=== PATIENT | female | born 1985 | race Two or more races ===

== ENCOUNTER 2020-06-02 19:42 | Emergency (ER) | payer OTHER ==
[~2020-06-02] VITALS: Ht 149.9 cm; Wt 49.9 kg
[2020-06-02] MEDS ORDERED: ACETAMINOPHEN 325 MG TABLET PO ONE (20:00)
--- NOTE | 2020-06-02 20:00 | NUR ---
BIBS FROM HOME TO ER BED 7. AAOX4. NOT IN RESP DISTRESS. AMBULATORY. CAME IN FOR ABDOMINAL CRAMPING AND NAUSEA. PT REPORTS THAT SHE IS 1 MONTH. MD WAS AT THE BEDSIDE FOR EVAL. ORDERS RECEIVED, NOTED AND CARRIED OUT.
[2020-06-02] MEDS ORDERED: ACETAMINOPHEN 325 MG TABLET ONE (20:08)
[2020-06-02 20:30] LABS: BASOPHILS # (AUTO) 0.1 /CMM (0.0-0.2); BASOPHILS % (AUTO) 0.7 % (0.0-2.0); EOSINOPHILS % (AUTO) 0.8 % (0.0-6.0); HEMATOCRIT 29 % (33-45); HEMOGLOBIN 9.3 g/dL (11.5-14.8); LYMPHOCYTES # (AUTO) 1.1 /CMM (0.8-4.8); LYMPHOCYTES % (AUTO) 14.5 % (20.0-44.0); MEAN CORPUSCULAR HGB CONC 32 g/dl (31.0-36.0); MEAN CORPUSCULAR VOLUME 77 fL (82-100); MONOCYTES # (AUTO) 0.5 /CMM (0.1-1.30); MONOCYTES % (AUTO) 7.1 % (2.0-12.0); NEUTROPHILS # (AUTO) 5.8 /CMM (1.8-8.9); NEUTROPHILS % (AUTO) 76.9 % (43.0-81.0); PLATELET COUNT (AUTO) 290 /CMM (150-450); RED BLOOD CELL COUNT(AUTO) 3.79 MIL/uL (4.0-5.2); WHITE BLOOD COUNT (AUTO) 7.6 K/uL (4.3-11.0)
--- NOTE | 2020-06-02 20:55 | NUR ---
urine sent to lab
[2020-06-02 21:01] LABS: BILIRUBIN,URINE Negative (NEGATIVE); BLOOD, URINE Negative Ery/uL (NEGATIVE); COLOR,URINE YELLOW (YELLOW); LEUKOCYTE ESTERASE ,URINE Small (NEGATIVE); NITRITE, URINE Negative (NEGATIVE); PH,URINE 6.5 (5.0-8.0); PROTEIN,URINE 30 mg/dl (NEGATIVE); UGLUCOSE Negative (NEGATIVE); UROBILINOGEN,URINE 0.2 EU/dL (0.2)
[2020-06-02 21:52] LABS: BACTERIA,URINE 1+ /HPF (None Seen); RBC,URINE NONE SEEN /HPF (0-2); SQUAMOUS EPITHELIAL CELL,UR Few /HPF (None Seen)
--- NOTE | 2020-06-02 22:52 | NUR ---
Patient discharged to home in stable condition. Written and verbal after care instructions given. Patient verbalizes understanding of instruction. Pt ambulatory with a steady gait
[2020-06-02 22:53] VITALS: BP 99/58
== END 2020-06-02 22:54 | disposition home or self-care (01) ==
LOC: ER 19:44
DX: N93.9 Abnormal uterine and vaginal bleeding, unspecified (principal); D64.9 Anemia, unspecified; Z90.49 Acquired absence of other specified parts of digestive tract
CPT/HCPCS: 36415; 76856-TC; 81001; 84702-TC; 84703-TC; 85025-TC; 87086-TC

== ENCOUNTER → 2020-11-08 | Emergency (ER) | payer OTHER ==
[~2020-11-08] VITALS: Ht 149.9 cm; Wt 49.9 kg
[~2020-11-08] MED LIST: CEPH500C2 PO; HYDROCODONE/APAP 5/325MG TABLET ONE; HYDROCODONE/APAP 5/325MG TABLET PO ONE; IBUPROFEN 600 MG TABLET PO ONE; OXYC-128 PO
--- NOTE | 2020-11-08 09:57 | NUR ---
pt recv;d to er c/o kidney stones pain for 2 days . AWAITING EVALUATION BY ER PROVIDER. pain in back 04/04
--- NOTE | 2020-11-08 10:34 | NUR ---
PT GIVEN NORCO 5/325 MG PO
[2020-11-08 10:39] LABS: BILIRUBIN,URINE NEGATIVE (NEGATIVE); COLOR,URINE YELLOW (YELLOW); LEUKOCYTE ESTERASE ,URINE TRACE (NEGATIVE); NITRITE, URINE NEGATIVE (NEGATIVE); PH,URINE 6.5 (5.0-8.0); PROTEIN,URINE NEGATIVE (NEGATIVE); UGLUCOSE NEGATIVE (NEGATIVE)
[2020-11-08 10:48] LABS: BACTERIA,URINE Few /HPF (None Seen); SQUAMOUS EPITHELIAL CELL,UR Moderate /HPF (None Seen)
--- NOTE | 2020-11-08 11:45 | NUR ---
PT. VERBALIZED UNDERSTANDING OF AFTERCARE INSTRUCTIONS.Patient discharged to home in stable condition. Written and verbal after care instructions given. Patient verbalizes understanding of instruction.
[2020-11-08 11:46] VITALS: BP 121/73
== END | disposition home or self-care (01) ==
LOC: ER 09:09
DX: N20.0 Calculus of kidney (principal); Z90.49 Acquired absence of other specified parts of digestive tract
CPT/HCPCS: 81001; 84703-TC; 87086-TC

== ENCOUNTER 2020-11-18 18:53 | Emergency (ER) | payer OTHER ==
[~2020-11-18] VITALS: Ht 149.9 cm; Wt 47.6 kg
[~2020-11-18 18:53] MED LIST changes: -HYDROCODONE/APAP 5/325MG TABLET ONE; -HYDROCODONE/APAP 5/325MG TABLET PO ONE; -IBUPROFEN 600 MG TABLET PO ONE
--- NOTE | 2020-11-18 19:05 | NUR ---
Pt bibra c/o rt flank pain and LLQ abd pain. Pt aaox4 breathing evenly and unlabored. Pt attached to monitor and pox. Skin is warm, dry, and intact. PA at bedside for eval. Rt ac 20g initated. Blood obtained and sent to lab. Pt given blanket and call light within reach
[2020-11-18] MEDS ORDERED: ONDANSETRON HCL/PF 4 MG/2 ML VIAL ONE (19:28)
[2020-11-18] MEDS ORDERED: MORPHINE SULFATE INJ 4 MG/ML DISP.SYRIN ONE (19:28)
[2020-11-18] MEDS ORDERED: ONDANSETRON HCL/PF - ER 4 MG/2 ML VIAL IV ONE (19:30)
[2020-11-18] MEDS ORDERED: MORPHINE SULFATE INJ 2 MG/ML DISP.SYRIN IV ONE (19:30)
[2020-11-18] MEDS ORDERED: IV NS 0.9% 1,000 ML BAG IV ONE (19:30)
--- NOTE | 2020-11-18 19:30 | NUR ---
us at bedside
[2020-11-18 19:42] LABS: BASOPHILS # (AUTO) 0.1 /CMM (0.0-0.2); BASOPHILS % (AUTO) 1.2 % (0.0-2.0); EOSINOPHILS % (AUTO) 7.5 % (0.0-6.0); HEMATOCRIT 36 % (33-45); LYMPHOCYTES # (AUTO) 1.8 /CMM (0.8-4.8); LYMPHOCYTES % (AUTO) 27.9 % (20.0-44.0); MEAN CORPUSCULAR HGB CONC 33 g/dl (31.0-36.0); MEAN CORPUSCULAR VOLUME 92 fL (82-100); MONOCYTES # (AUTO) 0.4 /CMM (0.1-1.30); MONOCYTES % (AUTO) 6.8 % (2.0-12.0); NEUTROPHILS # (AUTO) 3.6 /CMM (1.8-8.9); NEUTROPHILS % (AUTO) 56.6 % (43.0-81.0); PLATELET COUNT (AUTO) 300 /CMM (150-450); RED BLOOD CELL COUNT(AUTO) 3.93 MIL/uL (4.0-5.2); WHITE BLOOD COUNT (AUTO) 6.4 K/uL (4.3-11.0)
[2020-11-18 19:50] LABS: CALCIUM, SERUM 8.9 mg/dL (8.5-10.1); CREATININE 0.8 mg/dL (0.6-1.3); POTASSIUM 4.2 mmol/L (3.5-5.1)
[2020-11-18 19:57] LABS: ALBUMIN 3.9 g/dL (3.4-5.0); BILIRUBIN,TOTAL 0.2 mg/dL (0.2-1.0)
[2020-11-18 20:25] LABS: BILIRUBIN,URINE NEGATIVE (NEGATIVE); COLOR,URINE YELLOW (YELLOW); LEUKOCYTE ESTERASE ,URINE NEGATIVE (NEGATIVE); NITRITE, URINE NEGATIVE (NEGATIVE); PROTEIN,URINE NEGATIVE (NEGATIVE); UGLUCOSE NEGATIVE (NEGATIVE); UROBILINOGEN,URINE 0.2 EU/dL (0.2)
[2020-11-18] MEDS ORDERED: DICY10CA37 PO (20:35)
[2020-11-18] MEDS ORDERED: ONDA4TAB11 PO (20:35)
[2020-11-18] MEDS ORDERED: LORAZEPAM INJ 2 MG/ML VIAL ONE (20:47)
--- NOTE | 2020-11-18 20:54 | NUR ---
Patient discharged to home in stable condition. Written and verbal after care instructions given. Patient verbalizes understanding of instruction. IV removed. Catheter intact and site benign. Pressure and 4x4 applied to site. No bleeding noted. Pt ambulatory with a steady gait
[2020-11-18 20:55] VITALS: BP 130/83
[2020-11-18] MEDS ORDERED: LORAZEPAM INJ 2 MG/ML VIAL IV ONE (21:00)
== END 2020-11-18 20:54 | disposition home or self-care (01) ==
LOC: ER 18:55
DX: R10.32 Left lower quadrant pain (principal); R11.2 Nausea with vomiting, unspecified; Z87.442 Personal history of urinary calculi; Z90.49 Acquired absence of other specified parts of digestive tract; Z88.8 Allergy status to other drugs, medicaments and biological substances; Z88.6 Allergy status to analgesic agent; Z79.899 Other long term (current) drug therapy
CPT/HCPCS: 36415; 76770; 80048; 80076; 81003; 83690; 84703; 85025; 87086; 96361; 96374; 96375; 99284; J2060; J2270; J2405 ×2

== ENCOUNTER 2020-12-24 10:17 | Emergency (ER) | payer OTHER ==
[~2020-12-24] VITALS: Ht 149.9 cm; Wt 40.8 kg
[~2020-12-24 10:17] MED LIST changes: +DICY10CA37 PO; +ONDA4TAB11 PO
[2020-12-24 10:30] VITALS: BP 108/72
[2020-12-24] MEDS ORDERED: ACETAMINOPHEN W/ CODEINE#3 1 EA TABLET ONE (10:49)
[2020-12-24] MEDS: ACETAMINOPHEN W/ CODEINE#3 1 EA TABLET PO ONE (10:51)
--- NOTE | 2020-12-24 10:51 | NUR ---
ua sent to lab
[2020-12-24 10:59] LABS: BILIRUBIN,URINE Negative (NEGATIVE); COLOR,URINE YELLOW (YELLOW); LEUKOCYTE ESTERASE ,URINE Negative (NEGATIVE); NITRITE, URINE Negative (NEGATIVE); PROTEIN,URINE Negative (NEGATIVE); UGLUCOSE Negative (NEGATIVE); UROBILINOGEN,URINE 0.2 EU/dL (0.2)
[2020-12-24 11:20] LABS: BACTERIA,URINE Few /HPF (None Seen); RBC,URINE 0-2 /HPF (0-2); SQUAMOUS EPITHELIAL CELL,UR Few /HPF (None Seen); WBC,URINE 0-2 /HPF (0-3)
--- NOTE | 2020-12-24 12:02 | NUR ---
PATIENT A/OX4, BREATHING EVEN AND UNLABORED, NO SOB NOTED, DENIES ANY PAIN AT THIS TIME, AMBULATORY WITH STEADY GAIT. Patient discharged to home in stable condition. Written and verbal after care instructions given. Patient verbalizes understanding of instruction.
== END 2020-12-24 12:03 | disposition home or self-care (01) ==
LOC: ER 10:20
DX: G89.29 Other chronic pain (principal); Z76.5 Malingerer [conscious simulation]; Z90.49 Acquired absence of other specified parts of digestive tract; Z88.8 Allergy status to other drugs, medicaments and biological substances; Z88.6 Allergy status to analgesic agent; Z79.899 Other long term (current) drug therapy
CPT/HCPCS: 81001

== ENCOUNTER 2021-01-02 00:44 | Emergency (ER) | payer OTHER ==
[~2021-01-02] VITALS: Ht 149.9 cm; Wt 40.8 kg
--- NOTE | 2021-01-02 00:55 | NUR ---
PATIENT C/O LOW BACK PAIN, STATES "HX OF KIDNEY STONES". PATINET IS A/O X 4, RR EVEN AND UNLABORED, NO SIGNS OF SOB NOTED. PATIENT CONNECTED TO [facility].
[2021-01-02 01:41] LABS: BILIRUBIN,URINE Negative (NEGATIVE); COLOR,URINE YELLOW (YELLOW); LEUKOCYTE ESTERASE ,URINE Small (NEGATIVE); NITRITE, URINE Negative (NEGATIVE); PROTEIN,URINE Negative (NEGATIVE); UGLUCOSE Negative (NEGATIVE)
[2021-01-02] MEDS ORDERED: LIDOCAINE 5% (PATCH) 1 EA PATCH TP ONE (01:49)
--- NOTE | 2021-01-02 01:50 | NUR ---
PATIENT TAKEN TO CT
[2021-01-02 01:51] LABS: BASOPHILS # (AUTO) 0.1 K/uL (0.0-0.2); EOSINOPHILS % (AUTO) 7.5 % (0.0-6.0); HEMATOCRIT 33 % (33-45); HEMOGLOBIN 11.2 g/dL (11.5-14.8); LYMPHOCYTES # (AUTO) 2.1 K/uL (0.8-4.8); LYMPHOCYTES % (AUTO) 37.5 % (20.0-44.0); MEAN CORPUSCULAR HGB CONC 34 g/dl (31.0-36.0); MEAN CORPUSCULAR VOLUME 91 fL (82-100); MONOCYTES # (AUTO) 0.6 K/uL (0.1-1.30); MONOCYTES % (AUTO) 10.4 % (2.0-12.0); NEUTROPHILS # (AUTO) 2.4 K/uL (1.8-8.9); NEUTROPHILS % (AUTO) 43.6 % (43.0-81.0); PLATELET COUNT (AUTO) 236 K/uL (150-450); RED BLOOD CELL COUNT(AUTO) 3.67 MIL/uL (4.0-5.2); WHITE BLOOD COUNT (AUTO) 5.6 K/uL (4.3-11.0)
[2021-01-02] MEDS ORDERED: IBUPROFEN 400 MG TABLET ONE (01:51)
[2021-01-02] MEDS ORDERED: ACETAMINOPHEN ES 500 MG TABLET ONE (01:51)
[2021-01-02] MEDS: IBUPROFEN 400 MG TABLET PO ONE (02:01)
[2021-01-02] MEDS: LIDOCAINE 5% (PATCH) 1 EA PATCH TP SCH (02:01)
[2021-01-02] MEDS: ACETAMINOPHEN ES 500 MG TABLET PO ONE (02:01)
[2021-01-02] MEDS: IV NS 0.9% 1,000 ML BAG IV ONE (02:01)
[2021-01-02 02:06] LABS: BACTERIA,URINE Many /HPF (None Seen); SQUAMOUS EPITHELIAL CELL,UR Many /HPF (None Seen)
[2021-01-02 02:12] LABS: CALCIUM, SERUM 7.7 mg/dL (8.5-10.1); CREATININE 0.8 mg/dL (0.6-1.3); POTASSIUM 3.9 mmol/L (3.5-5.1)
[2021-01-02] MEDS ORDERED: ONDA4TAB11 PO (02:36)
[2021-01-02] MEDS ORDERED: ACET-2605 PO (02:36)
[2021-01-02 02:45] VITALS: BP 115/58
--- NOTE | 2021-01-02 02:45 | NUR ---
Patient discharged to home in stable condition. Written and verbal after care instructions given. Patient verbalizes understanding of instruction.
== END 2021-01-02 02:46 | disposition home or self-care (01) ==
LOC: ER 00:52
DX: N20.0 Calculus of kidney (principal); Z76.5 Malingerer [conscious simulation]; Z90.49 Acquired absence of other specified parts of digestive tract; Z88.8 Allergy status to other drugs, medicaments and biological substances; Z88.6 Allergy status to analgesic agent; Z79.899 Other long term (current) drug therapy
CPT/HCPCS: 36415; 80048-TC; 81001; 84703-TC; 85025-TC; 87086-TC

== ENCOUNTER 2021-01-26 03:59 | Emergency (ER) | payer OTHER ==
[~2021-01-26] VITALS: Ht 149.9 cm; Wt 45.4 kg
[~2021-01-26 03:59] MED LIST changes: +ACET-2605 PO
[2021-01-26 04:00] VITALS: BP 117/63
--- NOTE | 2021-01-26 05:20 | NUR ---
AT BED SIDE
[2021-01-26] MEDS ORDERED: ACET-2605 PO (05:24)
[2021-01-26] MEDS ORDERED: ONDA4TAB11 PO (05:24)
[2021-01-26] MEDS ORDERED: IBUP-1957 PO (05:24)
[2021-01-26] MEDS ORDERED: ONDANSETRON 4 MG TAB.RAPDIS SL ONE (05:30)
[2021-01-26] MEDS ORDERED: ACETAMINOPHEN ES 500 MG TABLET PO ONE (05:30)
[2021-01-26] MEDS ORDERED: IBUPROFEN 400 MG TABLET PO ONE (05:30)
== END 2021-01-26 05:37 | disposition home or self-care (01) ==
LOC: ER 04:03
DX: G89.29 Other chronic pain (principal); Z76.5 Malingerer [conscious simulation]; R10.9 Unspecified abdominal pain; Z90.49 Acquired absence of other specified parts of digestive tract; Z88.8 Allergy status to other drugs, medicaments and biological substances; Z88.6 Allergy status to analgesic agent; Z79.899 Other long term (current) drug therapy

== ENCOUNTER 2021-02-22 18:56 | Emergency (ER) | payer OTHER ==
[~2021-02-22] VITALS: Ht 149.9 cm; Wt 49.9 kg
[~2021-02-22 18:56] MED LIST changes: +IBUP-1957 PO
--- NOTE | 2021-02-22 19:34 | NUR ---
CALLED FOR TRIAGE, NO ANSWER
--- NOTE | 2021-02-22 20:50 | NUR ---
URINE SPECIMEN COLLECTED AND SENT TO LAB
[2021-02-22] MEDS ORDERED: ONDANSETRON HCL/PF 4 MG/2 ML VIAL IVP ONE (21:00)
[2021-02-22] MEDS ORDERED: IV NS 0.9% 1,000 ML BAG IV ONE (21:00)
[2021-02-22] MEDS ORDERED: MORPHINE SULFATE INJ 2 MG/ML DISP.SYRIN IV ONE (21:00)
[2021-02-22] MEDS ORDERED: ONDANSETRON HCL/PF 4 MG/2 ML VIAL ONE (21:04)
[2021-02-22] MEDS ORDERED: MORPHINE SULFATE INJ 4 MG/ML DISP.SYRIN ONE (21:04)
[2021-02-22 21:07] LABS: BILIRUBIN,URINE NEGATIVE (NEGATIVE); COLOR,URINE YELLOW (YELLOW); LEUKOCYTE ESTERASE ,URINE SMALL (NEGATIVE); NITRITE, URINE NEGATIVE (NEGATIVE); PROTEIN,URINE NEGATIVE (NEGATIVE); UGLUCOSE NEGATIVE (NEGATIVE)
--- NOTE | 2021-02-22 21:14 | NUR ---
IV LINE ESTABLISHED AT R HAND 22G
[2021-02-22 21:17] LABS: BACTERIA,URINE 2+ /HPF (None Seen); RBC,URINE 0-2 /HPF (0-2); URINE AMORPHOUS PHOSPHATES Moderate /HPF (None Seen)
--- NOTE | 2021-02-22 21:53 | NUR ---
Patient discharged to home in stable condition. Written and verbal after care instructions given. Patient verbalizes understanding of instruction. Patient is ambulatory with a steady gait
[2021-02-22 21:54] VITALS: BP 105/70
== END 2021-02-22 21:30 | disposition home or self-care (01) ==
LOC: ER 18:59
DX: R10.9 Unspecified abdominal pain (principal); Z76.5 Malingerer [conscious simulation]; Z90.49 Acquired absence of other specified parts of digestive tract; Z87.442 Personal history of urinary calculi; Z88.8 Allergy status to other drugs, medicaments and biological substances; Z88.6 Allergy status to analgesic agent; Z60.2 Problems related to living alone; Z79.899 Other long term (current) drug therapy
CPT/HCPCS: 81001; 84703; 87086; 96361; 96374; 96375; 99284; J2270; J2405; J7030

== ENCOUNTER 2021-03-12 21:39 | Emergency (ER) | payer OTHER ==
[~2021-03-12] VITALS: Ht 149.9 cm; Wt 45.4 kg
--- NOTE | 2021-03-12 23:28 | NUR ---
BIBSELF C/O ABD PAIN AND BILATERAL FLANK PAIN. "I HAVE A KIDNEY INFECTION". PAIN STARTED 2 DAYS AGO. DENIES TAKING PAIN MEDS. PT A/OX4. TOLERATING ROOM AIR. CONNECTED TO POX AND TELE MONITOR. SAFETY MEASURES IN PLACE.
[2021-03-12] MEDS ORDERED: ONDANSETRON 4 MG TAB.RAPDIS SL ONE (23:30)
[2021-03-12] MEDS ORDERED: ACETAMINOPHEN 325 MG TABLET PO ONE (23:30)
--- NOTE | 2021-03-12 23:31 | NUR ---
URINE SENT TO LAB
[2021-03-12] MEDS ORDERED: ACETAMINOPHEN 325 MG TABLET ONE (23:34)
[2021-03-12] MEDS ORDERED: ONDANSETRON 4 MG TAB.RAPDIS ONE (23:34)
[2021-03-12 23:59] LABS: BILIRUBIN,URINE Negative (NEGATIVE); COLOR,URINE YELLOW (YELLOW); LEUKOCYTE ESTERASE ,URINE Trace (NEGATIVE); NITRITE, URINE Negative (NEGATIVE); PROTEIN,URINE Trace mg/dl (NEGATIVE); UGLUCOSE Negative (NEGATIVE); UROBILINOGEN,URINE 0.2 EU/dL (0.2)
[2021-03-13 00:06] LABS: BACTERIA,URINE Few /HPF (None Seen); SQUAMOUS EPITHELIAL CELL,UR Few /HPF (None Seen)
--- NOTE | 2021-03-13 00:12 | NUR ---
PT TAKEN TO CT
--- NOTE | 2021-03-13 00:23 | NUR ---
PT RETURNED TO ER ROOM 2
--- NOTE | 2021-03-13 00:34 | NUR ---
LEAD FRONT END DEVELOPER AT BEDSIDE FOR BLOOD DRAW.
[2021-03-13 01:04] LABS: BASOPHILS % (AUTO) 0.6 % (0.0-2.0); HEMATOCRIT 31 % (33-45); HEMOGLOBIN 10.4 g/dL (11.5-14.8); LYMPHOCYTES # (AUTO) 1.6 K/uL (0.8-4.8); LYMPHOCYTES % (AUTO) 26.2 % (20.0-44.0); MEAN CORPUSCULAR HGB CONC 33 g/dl (31.0-36.0); MEAN CORPUSCULAR VOLUME 88 fL (82-100); MONOCYTES # (AUTO) 0.4 K/uL (0.1-1.30); MONOCYTES % (AUTO) 7.1 % (2.0-12.0); NEUTROPHILS # (AUTO) 3.5 K/uL (1.8-8.9); NEUTROPHILS % (AUTO) 58.1 % (43.0-81.0); PLATELET COUNT (AUTO) 270 K/uL (150-450); RED BLOOD CELL COUNT(AUTO) 3.54 MIL/uL (4.0-5.2)
[2021-03-13 01:12] LABS: CALCIUM, SERUM 8.3 mg/dL (8.5-10.1); CREATININE 0.8 mg/dL (0.6-1.3); POTASSIUM 3.4 mmol/L (3.5-5.1)
[2021-03-13] MEDS ORDERED: NITR100C6 PO (01:45)
--- NOTE | 2021-03-13 01:54 | NUR ---
Patient discharged to home in stable condition. RX Written and verbal after care instructions given. Patient verbalizes understanding of instruction. PT ambulatory with a steady gait. A/OX4
[2021-03-13 01:56] VITALS: BP 112/67
== END 2021-03-13 01:50 | disposition home or self-care (01) ==
LOC: ER 21:41
DX: N39.0 Urinary tract infection, site not specified (principal); F19.10 Other psychoactive substance abuse, uncomplicated; G89.29 Other chronic pain; Z90.49 Acquired absence of other specified parts of digestive tract; Z88.6 Allergy status to analgesic agent; Z88.8 Allergy status to other drugs, medicaments and biological substances; Z60.2 Problems related to living alone; Z79.899 Other long term (current) drug therapy
CPT/HCPCS: 36415; 74176; 80048; 80307; 81001; 84703; 85025; 99284; Q0162

== ENCOUNTER 2021-04-10 12:18 | Emergency (ER) | payer OTHER ==
[~2021-04-10] VITALS: Ht 149.9 cm; Wt 49.9 kg
[~2021-04-10 12:18] MED LIST changes: +NITR100C6 PO
--- NOTE | 2021-04-10 12:34 | NUR ---
TO ER BED 6, C/O FLANK PAIN, NAUSEA X2DAYS, AAOX3, BREATHING EVEN AND NON LABORED, CONNECTED TO MONITOR.
--- NOTE | 2021-04-10 12:40 | NUR ---
SALINE LOCK ESTABLISHED
--- NOTE | 2021-04-10 12:45 | NUR ---
LAB AT BEDSIDE
[2021-04-10] MEDS ORDERED: ONDANSETRON HCL/PF 4 MG/2 ML VIAL IVP ONE (13:00)
[2021-04-10] MEDS ORDERED: MORPHINE SULFATE INJ 2 MG/ML DISP.SYRIN IV ONE (13:00)
[2021-04-10] MEDS ORDERED: IV NS 0.9% 500 ML BAG IV ONE (13:00)
[2021-04-10 13:07] LABS: BILIRUBIN,URINE Negative (NEGATIVE); COLOR,URINE YELLOW (YELLOW); LEUKOCYTE ESTERASE ,URINE Small (NEGATIVE); NITRITE, URINE Negative (NEGATIVE); PROTEIN,URINE Negative (NEGATIVE); UGLUCOSE Negative (NEGATIVE); UROBILINOGEN,URINE 0.2 EU/dL (0.2)
[2021-04-10] MEDS ORDERED: MORPHINE SULFATE INJ 4 MG/ML DISP.SYRIN ONE (13:12)
[2021-04-10] MEDS ORDERED: ONDANSETRON HCL/PF 4 MG/2 ML VIAL ONE (13:12)
[2021-04-10 13:29] LABS: BASOPHILS % (AUTO) 0.5 % (0.0-2.0); EOSINOPHILS % (AUTO) 4.6 % (0.0-6.0); HEMATOCRIT 33 % (33-45); HEMOGLOBIN 10.6 g/dL (11.5-14.8); LYMPHOCYTES # (AUTO) 1.7 K/uL (0.8-4.8); LYMPHOCYTES % (AUTO) 28.1 % (20.0-44.0); MEAN CORPUSCULAR HGB CONC 32 g/dl (31.0-36.0); MEAN CORPUSCULAR VOLUME 87 fL (82-100); MONOCYTES # (AUTO) 0.5 K/uL (0.1-1.30); NEUTROPHILS # (AUTO) 3.6 K/uL (1.8-8.9); NEUTROPHILS % (AUTO) 58.8 % (43.0-81.0); PLATELET COUNT (AUTO) 268 K/uL (150-450); RED BLOOD CELL COUNT(AUTO) 3.77 MIL/uL (4.0-5.2)
[2021-04-10 13:41] LABS: BACTERIA,URINE Few /HPF (None Seen); RBC,URINE 0-3 /HPF (0-2); SQUAMOUS EPITHELIAL CELL,UR Many /HPF (None Seen)
[2021-04-10 13:41] LABS: CALCIUM, SERUM 7.9 mg/dL (8.5-10.1); CREATININE 0.8 mg/dL (0.6-1.3); POTASSIUM 3.8 mmol/L (3.5-5.1)
[2021-04-10 13:50] LABS: TOTAL PROTEIN, SERUM 6.2 g/dL (6.4-8.2)
[2021-04-10] MEDS ORDERED: CEPH500C2 PO (13:56)
--- NOTE | 2021-04-10 14:14 | NUR ---
IV removed. Catheter intact and site benign. Pressure and 4x4 applied to site. No bleeding noted.Patient discharged to home in stable condition. Written and verbal after care instructions given. Patient verbalizes understanding of instruction.
--- NOTE | 2021-04-10 14:14 | NUR ---
LEFT WITHOUT SIGNING DISCHARGE PAPERS
[2021-04-10 14:15] VITALS: BP 103/60
[2021-04-10 14:41] LABS: BILIRUBIN,TOTAL 0.2 mg/dL (0.2-1.0)
== END 2021-04-10 14:15 | disposition home or self-care (01) ==
LOC: ER 12:20
DX: N39.0 Urinary tract infection, site not specified (principal); R10.84 Generalized abdominal pain; Z90.49 Acquired absence of other specified parts of digestive tract; Z88.8 Allergy status to other drugs, medicaments and biological substances; Z88.6 Allergy status to analgesic agent; Z60.2 Problems related to living alone; Z79.899 Other long term (current) drug therapy
CPT/HCPCS: 36415; 74176; 80048; 80076; 81001; 83690; 84702; 84703; 85025; 87086; 96374; 96375; 99284; J2270; J2405; J7040

== ENCOUNTER 2021-06-15 19:31 | Emergency (ER) | payer OTHER ==
[~2021-06-15] VITALS: Ht 149.9 cm; Wt 41.3 kg
[2021-06-15 19:58] VITALS: BP 134/60
[2021-06-15] MEDS ORDERED: TRAMADOL HCL 50 MG TABLET ONE (20:11)
[2021-06-15] MEDS ORDERED: ACETAMINOPHEN ES 500 MG TABLET ONE (20:12)
[2021-06-15 20:25] LABS: BILIRUBIN,URINE Negative (NEGATIVE); COLOR,URINE YELLOW (YELLOW); LEUKOCYTE ESTERASE ,URINE Negative (NEGATIVE); NITRITE, URINE Negative (NEGATIVE); PROTEIN,URINE Negative (NEGATIVE); UGLUCOSE Negative (NEGATIVE); UROBILINOGEN,URINE 0.2 EU/dL (0.2)
[2021-06-15] MEDS: TRAMADOL HCL 50 MG TABLET PO ONE ×2 (20:30→21:27)
[2021-06-15] MEDS ORDERED: ONDANSETRON 4 MG TAB.RAPDIS SL ONE (20:30)
[2021-06-15] MEDS ORDERED: ACETAMINOPHEN ES 500 MG TABLET PO ONE (20:30)
--- NOTE | 2021-06-15 21:37 | NUR ---
Patient eloped from facility. ER MD notified.
== END 2021-06-15 21:40 | disposition left against medical advice (07) ==
LOC: ER 19:32
DX: R10.9 Unspecified abdominal pain (principal); Z88.6 Allergy status to analgesic agent; Z88.8 Allergy status to other drugs, medicaments and biological substances; Z87.442 Personal history of urinary calculi
CPT/HCPCS: 76770-TC

== ENCOUNTER 2021-09-11 07:06 | Emergency (ER) | payer OTHER ==
[~2021-09-11] VITALS: Ht 124.5 cm; Wt 40.8 kg
--- NOTE | 2021-09-11 07:21 | NUR ---
TO ER BED 11, BIBS. L FLANK PAIN X 2 DAYS. +N/+SELF INDUCED VOMMITING, ALSO C/O BACK PAIN, AAOX3, BREATHING EVEN AND NON LABORED, AWAITING MD VELASQUEZ
--- NOTE | 2021-09-11 07:30 | NUR ---
PT REFUSED BLOOD DRAW.
--- NOTE | 2021-09-11 07:33 | NUR ---
URINE SPECIMEN COLLECTED AND SENT TO LAB.
--- NOTE | 2021-09-11 07:35 | NUR ---
PT STATED SHE IS NOT AND OKAY TO RECEIVED TORADOL SHOT. AGREED TO SIGNED THE WAIVER.
[2021-09-11] MEDS: KETOROLAC TROMETHAMINE INJ 60 MG/2 ML VIAL IM ONE (07:40)
[2021-09-11] MEDS: ONDANSETRON 4 MG TAB.RAPDIS SL ONE (07:40)
[2021-09-11] MEDS ORDERED: KETOROLAC TROMETHAMINE INJ 30 MG/ML VIAL ONE (07:40)
[2021-09-11] MEDS ORDERED: ONDANSETRON 4 MG TAB.RAPDIS ONE (07:44)
--- NOTE | 2021-09-11 07:47 | NUR ---
Patient does not wish to proceed with medical care recommended by Dr. Dunbar. Patient given information related to possible complications, up to and including , which could occur as a result of leaving the hospital at this time. Patient verbalizes understanding of risks involved due to leaving against medical advice. Patient has signed AMA form.
[2021-09-11] MEDS: IV NS 0.9% 1,000 ML BAG IV ONE (07:49)
[2021-09-11] MEDS: ONDANSETRON HCL/PF 4 MG/2 ML VIAL IVP ONE (07:49)
--- NOTE | 2021-09-11 07:54 | NUR ---
Patient left against medical advice. Written and verbal after care instructions given. Patient verbalizes understanding of instruction.
[2021-09-11 07:57] VITALS: BP 126/80
[2021-09-11 08:24] LABS: BILIRUBIN,URINE NEGATIVE (NEGATIVE); COLOR,URINE YELLOW (YELLOW); LEUKOCYTE ESTERASE ,URINE MODERATE (NEGATIVE); NITRITE, URINE NEGATIVE (NEGATIVE); PH,URINE 8.5 (5.0-8.0); PROTEIN,URINE TRACE mg/dl (NEGATIVE); UGLUCOSE NEGATIVE (NEGATIVE); UROBILINOGEN,URINE 0.2 EU/dL (0.2)
[2021-09-11 08:37] LABS: BACTERIA,URINE Few /HPF (None Seen); SQUAMOUS EPITHELIAL CELL,UR Many /HPF (None Seen); TRICHOMONAS,URINE Moderate /HPF (None Seen)
[2021-09-11 08:38] LABS: URINE AMORPHOUS PHOSPHATES Many /HPF (None Seen)
== END 2021-09-11 07:58 | disposition left against medical advice (07) ==
LOC: ER 07:08
DX: R11.2 Nausea with vomiting, unspecified (principal); G89.29 Other chronic pain; A59.01 Trichomonal vulvovaginitis; Z76.5 Malingerer [conscious simulation]; Z90.89 Acquired absence of other organs; Z60.2 Problems related to living alone; Z79.1 Long term (current) use of non-steroidal anti-inflammatories (NSAID); Z79.891 Long term (current) use of opiate analgesic; Z79.899 Other long term (current) drug therapy; Z88.8 Allergy status to other drugs, medicaments and biological substances
CPT/HCPCS: 81001; 84703; 87086; 96372; 99283; J1885; Q0162

== ENCOUNTER 2021-09-11 16:25 | Emergency (ER) | payer OTHER ==
[~2021-09-11] VITALS: Ht 152.4 cm; Wt 45.4 kg
[2021-09-11 16:41] VITALS: BP 100/69
--- NOTE | 2021-09-11 16:54 | NUR ---
Pt No longer in room. Eloped
== END 2021-09-11 17:04 | disposition left against medical advice (07) ==
LOC: ER 16:26
DX: Z53.21 Procedure and treatment not carried out due to patient leaving prior to being seen by health care provider (principal); G89.29 Other chronic pain